=== PATIENT | female | born 1955 | race Caucasian/White ===

== ENCOUNTER 2019-12-30 14:21 | Emergency (ER) | payer OTHER ==
[~2019-12-30] VITALS: Ht 149.9 cm; Wt 77.1 kg
[2019-12-30] MEDS ORDERED: METFORMIN HCL500 M3 PO (14:39)
[2019-12-30] MEDS ORDERED: CHILDREN'S ASPI81 M1 PO (14:40)
[2019-12-30] MEDS ORDERED: MELOXICAM15 MG PO (14:40)
[2019-12-30] MEDS ORDERED: LOSARTAN-HCTZ1 EAC3 PO (14:41)
[2019-12-30 15:54] VITALS: BP 182/90
== END 2019-12-30 15:55 | disposition home or self-care (01) ==
LOC: M.ERS 14:21
DX: Z20.828 Contact with and (suspected) exposure to other viral communicable diseases (principal)